=== PATIENT | male | born 1940 | race Caucasian/White ===

== ENCOUNTER 2022-07-17 11:46 | Inpatient (IN) | payer BC, MEDICAID ==
[~2022-07-17] VITALS: Ht 165.1 cm; Wt 65.3 kg
[2022-07-17] MEDS: *LOVENOX0.75MG/KG Q12H/PHARMACY XX SCH (07:00)
[2022-07-17 11:48] VITALS: BP_SYST 161; PULSE 75; RESP 18; TEMP 97.6; O2SAT 97
[2022-07-17 12:06] LABS: BASOPHILS % (AUTO) 0.5 % (0.0-2.0); EOSINOPHILS # (AUTO) 0.1 K/uL (0.0-0.4); EOSINOPHILS % (AUTO) 1.7 % (0.0-4.0); HEMATOCRIT 49.4 % (36-54); HEMOGLOBIN 16.2 g/dL (14.0-18.0); LYMPHOCYTES # (AUTO) 2.2 K/uL (1.0-5.5); LYMPHOCYTES % (AUTO) 32.1 % (20.5-51.5); MEAN CORPUSCULAR HEMOGLOBIN 30 pg (27-31); MEAN CORPUSCULAR HGB CONC 33 % (32-36); MEAN CORPUSCULAR VOLUME 93 fL (79.0-98.0); MONOCYTES # (AUTO) 0.5 K/uL (0.0-1.0); MONOCYTES % (AUTO) 7.7 % (1.7-9.3); NEUTROPHILS # (AUTO) 3.9 K/uL (1.8-7.7); PLATELET COUNT (AUTO) 178 K/uL (130-430); RED BLOOD CELL COUNT(AUTO) 5.33 MIL/uL (4.2-6.2); RED CELL DISTRIBUTION WIDTH 13.6 % (9.0-15.0); WHITE BLOOD COUNT (AUTO) 6.8 K/uL (4.8-10.8)
[2022-07-17 12:25] LABS: ANION GAP 8 (5-15); CALCIUM 9.2 mg/dL (8.4-11.0); CHLORIDE 101 mmol/L (98-107); CREATININE 1.01 mg/dL (0.55-1.30); GLUCOSE 165 mg/dL (70-99); UREA NITROGEN, BLOOD 16 mg/dL (8-21)
[2022-07-17 12:32] LABS: ALANINE AMINOTRANSFERASE 30 U/L (12-78); ALBUMIN 3.7 g/dL (3.4-4.8); ASPARTATE AMINOTRANSFERASE 14 U/L (10-37); TOTAL BILIRUBIN 0.7 mg/dL (0.0-1.0)
[2022-07-17] MEDS ORDERED: DONE10TA44 PO (13:50)
[2022-07-17] MEDS ORDERED: LIP20 PO (14:02)
[2022-07-17] MEDS ORDERED: ENAL5TAB77 PO (14:04)
[2022-07-17] MEDS ORDERED: TAMS-11 PO (14:05)
[2022-07-17 16:02] VITALS: BP_SYST 105; PULSE 55; RESP 16; TEMP 97.3
[2022-07-17 16:35] VITALS: O2SAT 97
[2022-07-17 17:12] VITALS: BP_SYST 106; PULSE 53; RESP 16; TEMP 98.1; O2SAT 95
[2022-07-17 20:00] VITALS: BP_SYST 114; PULSE 56; RESP 18; TEMP 97.7; O2SAT 95; O2SAT 96
[2022-07-17] MEDS ORDERED: NALOXONE HCL 0.4 MG/ML AMP (NARCAN) IVP PRN ×2 (20:00)
[2022-07-17] MEDS ORDERED: HYDROcodone/ACETAMIN 5-325 MG TAB (NORCO/ VICODIN) PO PRN (20:00)
[2022-07-17] MEDS ORDERED: ONDANSETRON HCL 4 MG/2 ML VIAL IVP PRN (20:00)
[2022-07-17] MEDS ORDERED: LORazepam 2 MG/ML VIAL IVP PRN (20:00)
[2022-07-17] MEDS ORDERED: HYDROcodone/ACETAMIN 10-325 MG TAB PO PRN (20:00)
[2022-07-17] MEDS ORDERED: ACETAMINOPHEN 325 MG TABLET PO PRN ×2 (20:00)
[2022-07-17] MEDS ORDERED: ENALAPRIL MALEATE Non-Formular 5 MG TABLET PO SCH (21:00)
[2022-07-17] MEDS: ENOXAPARIN SODIUM 60 MG/0.6 ML SYRINGE SUBCUT SCH (21:13)
[2022-07-17] MEDS: ATORVASTATIN 20 MG TABLET PO SCH (21:13)
[2022-07-17] MEDS: lisinopriL 5 MG TABLET PO SCH (21:13)
[2022-07-17] MEDS: DONEPEZIL HCL 5 MG TABLET (ARICEPT) PO SCH (21:13)
[2022-07-17 23:14] VITALS: BP_SYST 114; PULSE 56; RESP 18; TEMP 97.7; O2SAT 95
[2022-07-18 00:08] VITALS: BP_SYST 120; PULSE 69; RESP 20; TEMP 97.4; O2SAT 69
[2022-07-18] MEDS: NORMAL SALINE 5 ML DISP.SYRIN IVF SCH ×4 (00:22→21:12)
[2022-07-18 07:30] LABS: BASOPHILS # (AUTO) 0.1 K/uL (0.0-0.2); BASOPHILS % (AUTO) 0.7 % (0.0-2.0); EOSINOPHILS # (AUTO) 0.2 K/uL (0.0-0.4); EOSINOPHILS % (AUTO) 2.6 % (0.0-4.0); HEMATOCRIT 44.8 % (36-54); HEMOGLOBIN 14.8 g/dL (14.0-18.0); LYMPHOCYTES # (AUTO) 2.7 K/uL (1.0-5.5); LYMPHOCYTES % (AUTO) 35.7 % (20.5-51.5); MEAN CORPUSCULAR HEMOGLOBIN 31 pg (27-31); MEAN CORPUSCULAR HGB CONC 33 % (32-36); MEAN CORPUSCULAR VOLUME 93 fL (79.0-98.0); MONOCYTES # (AUTO) 0.6 K/uL (0.0-1.0); MONOCYTES % (AUTO) 8.4 % (1.7-9.3); NEUTROPHILS % (AUTO) 52.6 % (40.0-70.0); PLATELET COUNT (AUTO) 156 K/uL (130-430); RED BLOOD CELL COUNT(AUTO) 4.84 MIL/uL (4.2-6.2); RED CELL DISTRIBUTION WIDTH 13.6 % (9.0-15.0); WHITE BLOOD COUNT (AUTO) 7.5 K/uL (4.8-10.8)
[2022-07-18 08:00] VITALS: BP_SYST 113; PULSE 66; RESP 18; TEMP 98.1; O2SAT 94
[2022-07-18 08:49] LABS: ALANINE AMINOTRANSFERASE 25 U/L (12-78); ALBUMIN 3.1 g/dL (3.4-4.8); ANION GAP 6 (5-15); ASPARTATE AMINOTRANSFERASE 14 U/L (10-37); CALCIUM 8.9 mg/dL (8.4-11.0); CHLORIDE 103 mmol/L (98-107); CHOLESTEROL 162 mg/dL (<200); CREATININE 0.84 mg/dL (0.55-1.30); GLUCOSE 107 mg/dL (70-99); HDL CHOLESTEROL 42 mg/dL (>45); PHOSPHORUS 3.4 mg/dL (2.7-4.5); THYROID STIMULATING HORMONE 1.11 uIu/mL (0.34-4.82); TOTAL BILIRUBIN 0.7 mg/dL (0.0-1.0); TRIGLYCERIDES 174 mg/dL (30-150); UREA NITROGEN, BLOOD 17 mg/dL (8-21)
[2022-07-18] MEDS: *LOVENOX0.75MG/KG Q12H/PHARMACY XX SCH ×2 (09:00→21:00)
[2022-07-18] MEDS: ENOXAPARIN SODIUM 60 MG/0.6 ML SYRINGE SUBCUT SCH ×2 (09:39→21:11)
[2022-07-18] MEDS: TAMSULOSIN HCL 0.4 MG CAP PO SCH (09:39)
[2022-07-18 10:00] VITALS: O2SAT 94
[2022-07-18 12:00] VITALS: BP_SYST 118; PULSE 62; RESP 19; TEMP 97.6; O2SAT 97
[2022-07-18 16:34] VITALS: BP_SYST 115; PULSE 65; RESP 18; TEMP 98; O2SAT 98
[2022-07-18 20:00] VITALS: BP_SYST 149; PULSE 69; RESP 18; TEMP 97; TEMP 97.6; O2SAT 97
[2022-07-18] MEDS: ATORVASTATIN 20 MG TABLET PO SCH (21:09)
[2022-07-18] MEDS: DONEPEZIL HCL 5 MG TABLET (ARICEPT) PO SCH (21:09)
[2022-07-18] MEDS: lisinopriL 5 MG TABLET PO SCH (21:10)
[2022-07-19 02:36] VITALS: BP_SYST 128; PULSE 78; RESP 18; TEMP 97.4; O2SAT 100
[2022-07-19 05:26] LABS: BASOPHILS # (AUTO) 0.1 K/uL (0.0-0.2); BASOPHILS % (AUTO) 0.7 % (0.0-2.0); EOSINOPHILS # (AUTO) 0.1 K/uL (0.0-0.4); EOSINOPHILS % (AUTO) 2.1 % (0.0-4.0); HEMATOCRIT 44.9 % (36-54); HEMOGLOBIN 14.8 g/dL (14.0-18.0); LYMPHOCYTES # (AUTO) 2.7 K/uL (1.0-5.5); LYMPHOCYTES % (AUTO) 37.7 % (20.5-51.5); MEAN CORPUSCULAR HEMOGLOBIN 31 pg (27-31); MEAN CORPUSCULAR HGB CONC 33 % (32-36); MEAN CORPUSCULAR VOLUME 92 fL (79.0-98.0); MONOCYTES # (AUTO) 0.7 K/uL (0.0-1.0); MONOCYTES % (AUTO) 9.4 % (1.7-9.3); NEUTROPHILS # (AUTO) 3.6 K/uL (1.8-7.7); NEUTROPHILS % (AUTO) 50.1 % (40.0-70.0); PLATELET COUNT (AUTO) 157 K/uL (130-430); RED BLOOD CELL COUNT(AUTO) 4.87 MIL/uL (4.2-6.2); RED CELL DISTRIBUTION WIDTH 13.3 % (9.0-15.0); WHITE BLOOD COUNT (AUTO) 7.2 K/uL (4.8-10.8)
[2022-07-19 06:02] LABS: ANION GAP 5 (5-15); CALCIUM 8.6 mg/dL (8.4-11.0); CHLORIDE 104 mmol/L (98-107); CREATININE 0.87 mg/dL (0.55-1.30); GLUCOSE 109 mg/dL (70-99); UREA NITROGEN, BLOOD 17 mg/dL (8-21)
[2022-07-19] MEDS: NORMAL SALINE 5 ML DISP.SYRIN IVF SCH ×2 (07:15→13:50)
[2022-07-19 08:00] VITALS: BP_SYST 154; PULSE 67; RESP 16; TEMP 97.1; O2SAT 95
[2022-07-19] MEDS: ENOXAPARIN SODIUM 60 MG/0.6 ML SYRINGE SUBCUT SCH (08:39)
[2022-07-19] MEDS: TAMSULOSIN HCL 0.4 MG CAP PO SCH (08:39)
[2022-07-19 10:09] VITALS: O2SAT 95
[2022-07-19] MEDS ORDERED: METOPROLOL SUCCINATE 25 MG TAB.SR.24H (TOPROL XL) PO ONE (10:45)
[2022-07-19] MEDS: *LOVENOX0.75MG/KG Q12H/PHARMACY XX SCH (11:58)
[2022-07-19 12:51] VITALS: BP_SYST 132; PULSE 72; RESP 17; TEMP 97.3; O2SAT 97
[2022-07-19] MEDS ORDERED: LOSA50TA3 PO (14:29)
[2022-07-19] MEDS ORDERED: ENAL5TAB77 PO (14:29)
[2022-07-19] MEDS ORDERED: METO-540 PO (14:29)
[2022-07-19] MEDS ORDERED: ISOS30TA85 PO (14:29)
[2022-07-19 15:11] VITALS: BP_SYST 132; PULSE 72; RESP 17; TEMP 97.3; O2SAT 97
[2022-07-20] MEDS ORDERED: METOPROLOL SUCCINATE 25 MG TAB.SR.24H (TOPROL XL) PO SCH (09:00)
== END 2022-07-19 15:30 | disposition home or self-care (01) | DRG 282 ==
LOC: SED 11:46 → STU 13:29
PROVIDERS: ADMIT Preventive Medicine Preventive Medicine/Occupational Environmental Medicine; ATTEND Preventive Medicine Preventive Medicine/Occupational Environmental Medicine
DX: I21.4 Non-ST elevation (NSTEMI) myocardial infarction (principal); R73.9 Hyperglycemia, unspecified; E78.2 Mixed hyperlipidemia; I10 Essential (primary) hypertension; E88.09 Other disorders of plasma-protein metabolism, not elsewhere classified; I25.10 Atherosclerotic heart disease of native coronary artery without angina pectoris; I25.2 Old myocardial infarction; Z79.01 Long term (current) use of anticoagulants; Z87.891 Personal history of nicotine dependence
CPT/HCPCS: 36415; 71045; 80048; 80053; 80061; 82550; 83735; 83880; 84100; 84443; 84484; 85025; 93005; 93306; 99285; G0378; J1650